=== PATIENT | male | born 1955 | race Caucasian/White ===

== ENCOUNTER → 2020-02-22 14:02 | Outpatient (CLI) | payer MEDICARE, SELFPAY ==
[2020-02-24 07:16] LABS: PSA, Free 0.53 ng/mL; Prostate Specific Ag 4.1 ng/mL (0.0-4.0)
== END ==
PROVIDERS: Visit Provider Urology
DX: R97.20 Elevated prostate specific antigen [PSA] (principal); N40.0 Benign prostatic hyperplasia without lower urinary tract symptoms
CPT/HCPCS: 36415; 84153; 84154

== ENCOUNTER → 2020-04-19 16:35 | Outpatient (CLI) | payer MEDICARE, SELFPAY ==
[2020-04-19 16:48] LABS: Basophils % 0.5 % (0.1-2.0); Eosinophils # 0.2 K/mm3 (0.0-0.4); Eosinophils % 3.2 % (0.1-12.0); Hematocrit 41.1 % (42.0-52.0); Hemoglobin 13.4 g/dL (14.1-18.0); Lymphocytes % 27.3 % (10-50); Mean Corpuscular HGB Conc 32.5 g/dL (31.8-35.4); Mean Corpuscular Hemoglobin 26.6 pg (27.0-31.2); Mean Platelet Volume 6.9 fl (7.4-10.4); Monocytes # 0.4 K/mm3 (0.1-1.0); Monocytes % 5.5 % (1.7-9.3); Neutrophils # 4.5 K/mm3 (1.8-7.8); Neutrophils % 63.5 % (37.0-80.0); Platelet Count 207 K/mm3 (142-424); Red Blood Count 5.01 M/mm3 (4.60-6.20); Red Cell Distribution Width 15.2 % (11.5-17.5); White Blood Count 7.2 K/mm3 (4.8-10.8)
[2020-04-19 18:42] LABS: Anion Gap 14.8 mEq/L (5-15); Blood Urea Nitrogen 14 mg/dl (9-20); Calcium 9.5 mg/dl (8.4-10.2); Carbon Dioxide 28 mmol/L (22.0-30.0); Chloride 100 mmol/L (98-107); Estimated Glomerular Filt Rate 84 ml/min (>60); GFR (African American) 102 ML/MIN (>60); Glucose 83 mg/dl (74-100); Potassium 3.8 mmoL/L (3.5-5.1); Sodium 139 mmol/L (136-145)
[2020-04-19 19:53] LABS: Coronavirus 19 IgG Antibody Negative (Negative); Coronavirus 19 IgM Antibody Negative (Negative)
== END ==
PROVIDERS: Visit Provider Urology
DX: Z01.818 Encounter for other preprocedural examination (principal); N40.0 Benign prostatic hyperplasia without lower urinary tract symptoms
CPT/HCPCS: 36415; 80048; 85025; 86328

== ENCOUNTER 2020-04-20 16:15 | Observation (INO) | payer MEDICARE, SELFPAY ==
[2020-04-19 09:11] VITALS: BMI 30.4
[2020-04-20] VITALS (22 sets, daily range): BP systolic 130–161; BP diastolic 54–95; PULSE 51–84; RESP 12–21; TEMP 36.4–43; O2SAT 92–99; BMI 29.5
--- NOTE | 2020-04-20 13:04 | HMH.ANESCL ---
[facility] Anesthesia Checklist - Patient Identification Patient Identification: Arm Band - Structural Data Admitted From: Home Planned Operative Procedure/s: TURP Consent for Planned Operative Procedure(s) Verified: Yes Verified Documents: Surgical Consent, History and Physical - NPO Status Verified Time NPO: 00:00 - Additional verifications Anesthesia Reactions: No Hx Blood Transfusions: No Blood Transfusion Reaction: No - Airway Assessment C-Spine Mobility Assessed: Yes (mp2) TMJ Mobility Assessed: Yes Dentition: Good Dentition - Neurological Assessment Level of Consciousness: Awake, Alert - Anesthesia Plan Anesthesia Risk discussed: Yes Anesthesia Plan: Verified ASA Class: II Anesthesia Type: General [facility] History Medical History: Reports:: Hypertension, Lung Disease (liu-cpap hs) Denies:: Cancer, Diabetes Mellitus Type 1, Diabetes Mellitus Type 2, Internal Pacemaker, MRSA, Seizures *Have you ever received a pneumonia vaccine?: No *Have you received a flu vaccine this season?: Yes Other Medical History: Reports: Arthritis. Denies: Blood Transfusion Reaction Anesthesia experience/problems:: nac Other Surgeries: Yes: Hernia Repair, Other. No: Pacemaker Amputation: No Fractures: No - *Social History Smoking Status: Never smoker Alcohol Intake: never Alcohol Intake Frequency:: holidays/special occasions only Substance Use Type: denies use *Occupational Status:: employed Housing: house Household Members: spouse *Travel in the last 8 weeks: None Family Hx:: Cancer, Diabetes, Coronary Artery Disease
--- NOTE | 2020-04-20 15:59 | P.PN_ITS ---
[facility] Anesthesia Record Part I Intake, IV Amount: 1,500 Estimated blood loss (mL): 0 Urine output (mL): 0 Blood Pressure: 155/88 SaO2: 93 Pulse Rate: 74 Respiratory Rate: 12 Temperature: 98.9 F Patient is:: Awake, Stable Stable to PACU at:: 15:55
--- NOTE | 2020-04-20 16:13 | HMH.OPNOTE ---
Date of procedure: 04/20/20 Pre-op Diagnosis:: Urinary retention secondary to BPH Post-op Diagnosis:: Same Procedure performed:: Transurethral resection of prostate Surgeon:: Josh Shen MD PHOTOCOMPOSING MACHINE OPERATOR:: Rober Wade Anesthesia: GETA Estimated blood loss (mL): 10 Clinical Note:: 64-year-old white male with history of BPH causing recent urinary retention. Postvoid residual noted to be 1800 cc earlier this week and Farias catheter placed. Operative findings:: Trilobar hyperplasia with severe bladder trabeculation. Operative note:: Patient taken to the operating room after informed consent was obtained. Is placed on the operating table in the supine position and general anesthesia administered. Preoperative antibiotics and sequential compression devices placed. He was then placed into the dorsal lithotomy additional prepped and draped in the standard surgical fashion. The 28 [place] resectoscope sheath with obturator passed into the urethra and into the bladder without difficulty. The obturator removed and our resectoscope with the 27 [place] Islander Loop was placed through the sheath. The bladder again examined showing severe trabeculation. No mucosal abnormalities were noted. The ureteral orifices were away from the median lobe and were marked. Resection began at the bladder neck resecting the bladder neck and a circumferential fashion. Median lobe was small and it was resected as well as the floor of the prostate back to the verumontanum. The left side of the prostate was then resected in a counterclockwise fashion back to the level of the verumontanum. The right side prostatic adenoma was resected in a clockwise fashion back to the level of the verumontanum. There was a significant amount of anterior tissue and this was resected back to the be removed as well. The apical tissue was resected as stage III. A good result was noted and all the chips were evacuated and hemostasis achieved. A catheter guide was used passing 24 [place] Islander three-way catheter into the bladder 30 cc placed into the balloon and continuous bladder irrigation connected. The urine was clear. The patient tolerated procedure well and there was minimal blood loss. He was transported to the recovery in stable condition. All the prostatic chips were sent off for specimen. Condition: stable Disposition: PACU Specimens:: Prostate tissue Complications:: None
[2020-04-20 18:22] LABS: Chloride 106 mmol/L (98-107); Sodium 138 mmol/L (136-145)
[2020-04-20 18:25] LABS: Blood Urea Nitrogen 10 mg/dl (9-20); Carbon Dioxide 27 mmol/L (22.0-30.0); Creatinine Clearance Estimated 96 mL/min (50-200); Estimated Glomerular Filt Rate 97 ml/min (>60); GFR (African American) 117 ML/MIN (>60); Glucose 137 mg/dl (74-100)
[2020-04-20 19:08] LABS: Calcium 8.5 mg/dl (8.4-10.2)
[2020-04-21] VITALS: BP 127/73; PULSE 63; RESP 18; TEMP 36.8; O2SAT 94
--- NOTE | 2020-04-21 01:19 | PC.NURSE ---
pt brought cpap from home and currently using it now. independent setup.
[2020-04-21 04:13] VITALS: BP 107/69; PULSE 58; RESP 16; TEMP 36.7; O2SAT 96
--- NOTE | 2020-04-21 05:08 | PC.NURSE ---
A&O X4. PT RESTED WELL WITH EYES CLOSED THIS SHIFT. MINIMAL C/O PAIN AT BEGINNING OF SHIFT, DESCRIBES PAIN TINGLING PAIN IN PENIS. RATING 6/10 ON PAIN SCALE. ADMINISTERED NORCO PER MAR X1 PER PT REQUEST. UPON REASSESSMENT PT DENIES ANY FURTHER PAIN. BILATERAL LUNGS NOTED CLEAR T/O UPON AUSCULTATION. TOLERATED RA WELL. ENCOURAGED USE OF INCENTIVE SPIROMETER, PT DEMONSTRATED APPROPRIATE USE TO THIS RN. PT INDEPENDENT USE OF CPAP WHILE SLEEPING, TOLERATED WELL. CBI CONTINUED T/O SHIFT. IRRIGATED URINE NOTED PINK IN COLOR THIS AM. THIS RN HAS TITRATED FLOW RATE T/O SHIFT, AT BEGINNING OF SHIFT URINE NOTED BRIGHT RED WITH CLOUDY/SEDIMENT CONSISTENCY. PT HAS TOLERATED CBI WELL WITH NO COMPLAINTS. PT REQUESTED TO HAVE FC TAPED TO LEG FOR GOOD ROM ABILITY. FC SITE NOTED C/D/I. NO BM NOTED THIS SHIFT THUS FAR. SPOUSE AT BEDSIDE. VSS. REMAINS SAFE. CALL LIGHT WITHIN REACH. WILL CONTINUE TO MONITOR.
[2020-04-21 07:05] LABS: Basophils % 0.1 % (0.1-2.0); Eosinophils % 0.5 % (0.1-12.0); Hemoglobin 11.9 g/dL (14.1-18.0); Lymphocytes # 1.1 K/mm3 (0.7-4.5); Lymphocytes % 11.9 % (10-50); Mean Corpuscular HGB Conc 32.2 g/dL (31.8-35.4); Mean Corpuscular Hemoglobin 26.6 pg (27.0-31.2); Mean Corpuscular Volume 82.7 fl (80-94); Mean Platelet Volume 7.4 fl (7.4-10.4); Monocytes # 0.3 K/mm3 (0.1-1.0); Monocytes % 3.6 % (1.7-9.3); Neutrophils # 7.6 K/mm3 (1.8-7.8); Platelet Count 182 K/mm3 (142-424); Red Blood Count 4.48 M/mm3 (4.60-6.20); Red Cell Distribution Width 14.9 % (11.5-17.5); White Blood Count 9.1 K/mm3 (4.8-10.8)
[2020-04-21 07:21] VITALS: BMI 30.1
--- NOTE | 2020-04-21 07:22 | P.CONPHA_ITS ---
[facility] Pharmacy VTE Monitoring - Patient Demographics Admission date: 04/20/20 Report Date: 04/21/20 Time: 07:22 Allergies/Adverse Reactions: Patient Allergies No Known Allergies Allergy (Verified 04/20/20 12:02) Height: 1.78 m Weight: 95.368 kg - VTE Risk Labs: VTE Related Lab Results Hgb 11.9 g/dL (14.1-18.0) L 04/21/20 06:12 Hct 37.0 % (42.0-52.0) L 04/21/20 06:12 Plt Count 182 K/mm3 (142-424) 04/21/20 06:12 BUN 10 mg/dl (9-20) D 04/20/20 18:06 Creatinine 0.80 mg/dl (0.66-1.25) 04/20/20 18:06 Estimated Creat Clear 96 mL/min (50-200) 04/20/20 18:06 VTE Score: 3 VTE Risk Level: Low Risk - Prophylaxis VTE Prophylaxis Ordered?: Yes Types of VTE Prophylaxis: IPCS Thigh High Location of Applied Device: Bilateral Lower Extremeties - VTE Diagnosis Confirmed Treatment or plan recommended: Continue Current Treatment
--- NOTE | 2020-04-21 07:22 | HMH.PHAINT ---
MEDICATION RECONCILIATION COMPLETED ON PATIENT USING EXTERNAL FILL HISTORY FROM PHARMACY. -ABIMBOLA VALENZUELA, HENRIQUED
[2020-04-21 08:00] VITALS: BP 122/69; PULSE 64; RESP 18; TEMP 36.7; O2SAT 98
--- NOTE | 2020-04-21 10:53 | P.PN_ITS ---
Internal Medicine - PN: Subj *Date: 04/21/20 *Time: 10:53 Interval history: Pt without complaints. Urine pink off CBI. Tolerating diet and has been up to bathroom. VSS AF Exam Vital signs and Labs for Last 24 Hours: Temp Pulse Resp BP Pulse Ox 98.1 F 64 18 122/69 98 04/21/20 08:00 04/21/20 08:00 04/21/20 08:00 04/21/20 08:00 04/21/20 08:00 Laboratory Results - last 24 hr 04/20/20 18:06: Sodium 138, Potassium 4.0, Chloride 106, Carbon Dioxide 27, Anion Gap 9.0, BUN 10 D, Creatinine 0.80, Estimated Creat Clear 96, Estimated GFR 97, Est GFR ( Amer) 117, Glucose 137 H, Calcium 8.5 D 04/21/20 06:12: WBC 9.1 D, RBC 4.48 L, Hgb 11.9 L, Hct 37.0 L, MCV 82.7, MCH 26.6 L, MCHC 32.2, RDW 14.9, Plt Count 182, MPV 7.4, Neut % (Auto) 84.0 H, Lymph % (Auto) 11.9, Jenkins % (Auto) 3.6, Eos % (Auto) 0.5, Baso % (Auto) 0.1, Neut # (Auto) 7.6, Lymph # (Auto) 1.1, Jenkins # (Auto) 0.3, Eos # (Auto) 0.0, Baso # (Auto) 0.0 I & O for Last 24 hours: Intake & Output 04/18/20 04/19/20 04/20/20 04/21/20 23:59 23:59 23:59 23:59 Intake Total 1860 / 1860 1234 / 1234 Output Total 67292 / 56171 00598 / 84696 Balance -17707 / -30287 -9041 / -9041 Weight 96.162 kg 93.44 kg 95.368 kg Narrative: PERRL Abd soft, ND no CVAT nl resp effort alert and oriented Assessment and Plan (1) Urinary retention due to benign prostatic hyperplasia Current visit: Yes Status: Acute Category: Medical Code(s): N40.1 - Benign prostatic hyperplasia with lower urinary tract symptoms; R33.8 - Other retention of urine POD 1 s/p TURP. Urine pink off CBI. Will d/c home with dao x 3 days. Discussed hydrating well and restriction of strenuous actiivity. RTO 3 days for voiding trial.
--- NOTE | 2020-04-21 11:54 | HMH.PHAINT ---
DISCHARGE COUNSELING COMPLETED ON PATIENT. ONLY NEW PRESCRIPTION IS CEFDINIR 300MG BID FOR ONE WEEK. PATIENT IS TO CONTINUE AMLODIPINE AND STOP FINASTERIDE AND TAMSULOSIN. NEW PRESCRIPTION WAS PRINTED. PATIENT AND VERBALIZED UNDERSTANDING AND HAD NO QUESTIONS AT THIS TIME. -ABIMBOLA VALENZUELA, PHARMD
--- NOTE | 2020-04-21 13:19 | PC.NURSE ---
THIS RN SET PATIENT UP WITH A SHOWER CHAIR AND ALL SUPPLIES REQUIRED FOR SHOWER. WHEN PATIENT SAT ON THE TOILET FOR THE FIRST TIME PATIENT'S SHAY PULLED AND CAUSED BLOOD TO LEAK FROM AROUND CATHETER. THIS RN FLUSHED CATHETER AND EDUCATED PATIENT TO WASH HIS PENIS WITH SOAP AND WARM WATER, PATIENT VERBALIZED AN UNDERSTANDING. THIS RN PROVIDED D/C INSTRUCTIONS, CHANGED SHAY BAG TO A LEG BAG. UPON DISCHARGE PATIENT CONTINUED TO HAVE BLOOD COLORED URINE FROM BLADDER. DR. VINCENT WAS AT BEDSIDE AND EDUCATED PATIENT AND SPOUSE IN REGARDS TO WHAT IS APPROPRIATE FOR COLOR OF URINE. PATIENT AND SPOUSE VERBALIZED AN UNDERSTANDING.
== END 2020-04-21 12:50 | disposition home or self-care (01) ==
LOC: 2ND 16:16
PROVIDERS: Admitting Provider Urology; Visit Provider Urology
PROC: 0VT08ZZ Resection of Prostate, Via Natural or Artificial Opening Endoscopic (ICD-10-PCS; CPT 52601; principal; 2020-04-20 13:15)
DX: N40.1 Benign prostatic hyperplasia with lower urinary tract symptoms (principal); R33.8 Other retention of urine; I10 Essential (primary) hypertension
CPT/HCPCS: 52601; 36415; 80048; 85025; 88305; 96374; G0378; J2405

== ENCOUNTER → 2020-06-20 16:36 | Outpatient (CLI) | payer MEDICARE, SELFPAY | PROVIDERS: Visit Provider Urology | DX: N40.1 Benign prostatic hyperplasia with lower urinary tract symptoms (principal) | CPT/HCPCS: 87086; 87088 ==

== ENCOUNTER → 2021-07-13 15:06 | Outpatient (CLI) | payer OTHER, SELFPAY ==
[2021-07-13 16:39] LABS: Prostate Specific Ag, Diagnost 1.22 ng/ml (0.0-4.0)
== END ==
PROVIDERS: Visit Provider Urology
DX: R97.20 Elevated prostate specific antigen [PSA] (principal)
CPT/HCPCS: 36415; 84153